=== PATIENT | female | born 1965 | race African-American/Black ===

== ENCOUNTER 2024-02-04 07:06 | Emergency (ER) | payer OTHER, MEDICAID ==
[~2024-02-04] VITALS: Ht 170.2 cm; Wt 131.4 kg
[2024-02-04] MEDS: CefTRIAXone 500MG IM Kit w/LIDOcaine (for pt below or = to 150kg) IM ONE (12:16)
[2024-02-04] MEDS: TINIDAZOLE 500 MG TABLET PO ONE (12:21)
[2024-02-04] MEDS: LEVONORGESTREL 1.5MG tablet 1.5 MG TABLET PO ONE (12:21)
[2024-02-04] MEDS: azithromycin 250mg tablet PO ONE (12:21)
[2024-02-04 14:04] VITALS: BP 160/84; PULSE 76; RESP 16; TEMP 97.3; O2SAT 98
== END 2024-02-04 12:30 | disposition home or self-care (01) ==
LOC: EEVIPCON 07:07 → ER 07:07
DX: T76.21XA Adult sexual abuse, suspected, initial encounter (principal); E11.9 Type 2 diabetes mellitus without complications; J45.909 Unspecified asthma, uncomplicated
CPT/HCPCS: 96372; 99284; J0696